=== PATIENT | male | born 1965 | race Caucasian/White ===

== ENCOUNTER 2017-08-27 15:34 | Emergency (ER) | payer OTHER ==
[2017-08-27 16:10] VITALS: BP 191/110
--- NOTE | 2017-08-27 16:19 | UC ---
General HPI - HPI Summary HPI Summary: Pt presents to urgent care with his SO. Pt is a 52 yo male with a PMH significant for htn - pt is on an antihypertensiv/HTCZ. Pt states approx 8 months ago lab work indicated pre-diabetic. Pt states approx 2 weeks ago had pain in left scapula. Pt states felt like "muscle spasm." Pt states his rubbed a sigrid which seemed to help. Pt states since this time has progressive MCGRATH and PND. Pt states is unable to lie flat because feels SOB. Pt states with walking needs to sit and rest. Pt states feels like needs to open door to get "fresh air." Pt states feels like his legs have increased swelling slightly and his abd feels "more tight" No matamoros, vision changes. No nausea, vomiting. No diaphoresis. Pt states he had been taking his blood pressure at nighttime because heard this was better on the radio. Pt states he went to PCP office on Sat - was instructed to take antihypertensives in the am and was given a benadryl to help him sleep. Pt states feels too sob and anxious when lays down - did not take benadryl Pt's medications reviewed this visit Pt with markedly elevated BP today - did not take anti-hypertensive meds today. - History of Current Complaint Chief Complaint: UCGeneralIllness Stated Complaint: ANXIETY,HIGH BP Time Seen by Provider: 08/27/17 16:01 Hx Obtained From: Patient Onset/Duration: Gradual Onset Onset Severity: Mild Current Severity: Moderate - Allergy/Home Medications Allergies/Adverse Reactions: Allergies Allergy/AdvReac Type Severity Reaction Status Date / Time No Known Allergies Allergy Verified 08/27/17 16:10 Home Medications: Home Medications Aspirin [Aspirin 81 MG TAB] 81 mg PO DAILY 08/27/17 [History Confirmed 08/27/17] Cholecalciferol [Vitamin D] 2,000 i.u. DAILY 08/27/17 [History Confirmed ] Losartan/HCTZ 100/25 (NF) [Hyzaar 100/25 (NF)] 1 tab PO BEDTIME 08/27/17 [ History Confirmed 08/27/17] PMH/Surg Hx/FS Hx/Imm Hx Previously Healthy: Yes Endocrine History: Diabetes - borderline - no meds - Surgical History Surgical History: Yes Surgery Procedure, Year, and Place: HALO FOR FX NECK - Family History Known Family History: Positive: Cardiac Disease, Hypertension, Diabetes - Social History Occupation: Employed Full-time Lives: With Family Alcohol Use: Occasionally Substance Use Type: None Substance Use Comment - Amount & Last Used: denies Smoking Status (MU): Former Smoker When Did the Patient Quit Smoking/Using Tobacco: 10 years + - Immunization History Most Recent Influenza Vaccination: none Most Recent Tetanus Shot: 03/23/13 Review of Systems Constitutional: Negative Skin: Negative Respiratory: Shortness Of Breath All Other Systems Reviewed And Are Negative: Yes Physical Exam Triage Information Reviewed: Yes Appearance: Well-Appearing, No Pain Distress, Well-Nourished Vital Signs: Initial Vital Signs Temp 99.3 F 08/27/17 15:50 Pulse 84 08/27/17 15:50 Resp 18 08/27/17 15:50 BP 191/110 08/27/17 15:50 Pulse Ox 95 08/27/17 15:50 Vital Signs Reviewed: Yes Eye Exam: Normal Eyes: Positive: Conjunctiva Clear ENT: Positive: Normal ENT inspection, Hearing grossly normal, Pharynx normal Neck exam: Normal Neck: Positive: Supple, Nontender, No Lymphadenopathy Respiratory: Positive: Chest non-tender, Lungs clear, Normal breath sounds, No respiratory distress, No accessory muscle use, Other: Cardiovascular Exam: Normal Cardiovascular: Positive: RRR, No Murmur, Other: - 2+ edema b/l Abdomen Description: Positive: Nontender, No Organomegaly, Soft, Distended Bowel Sounds: Positive: Present Musculoskeletal Exam: Normal Neurological Exam: Normal Psychological Exam: Normal Skin Exam: Normal Diagnostics - EKG Cardiac Rate: NL Cardiac Rhythm: Sinus: Normal - LAFB Ectopy: None ST Segment: Normal Course/Dx - Course Course Of Treatment: pt with progressive SOB, MCGRATH, pND x 2 weeks. Pt with markedly elevated BP. EKG with LAFB- no old to compare. I had a long conversation with pt and SO. concern for ? CHF. Spoke with Leila Carr - [facility] -pt preference. pt with go by private vehicle - Differential Dx - Multi-Symptom Provider Diagnoses: PND. peripheral edema Discharge - Discharge Plan Condition: Stable Disposition: HOME Patient Education Materials: Dyspnea (ED) Referrals: No Primary Care Phys,NOPCP [Primary Care Provider] - Additional Instructions: The doctor that evaluated you today recommends you go to the emergency department for additional testing and evaluation of your shortness of breath. the providers at [facility] are expecting you If you develop chest pain or any changes enroute - it is recommended you tube puller and dial 911 As we discussed, your spouse should drive you
== END 2017-08-27 16:44 | disposition home or self-care (01) ==
LOC: UCCORT 15:34
DX: J18.9 Pneumonia, unspecified organism (principal); R60.9 Edema, unspecified; F41.9 Anxiety disorder, unspecified; R73.03 Prediabetes; Z79.82 Long term (current) use of aspirin; Z87.891 Personal history of nicotine dependence
CPT/HCPCS: 93005; 99212; G0463